=== PATIENT | male | born 1960 | race Caucasian/White ===

== ENCOUNTER 2017-11-10 09:08 | Emergency (ER) | payer OTHER ==
[~2017-11-10] VITALS: Ht 180.3 cm; Wt 104.3 kg
--- NOTE | ~2017-11-10 | EKG ---
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
[2017-11-10] MEDS ORDERED: LIPITOR 20 MG T20 M1 PO (09:32)
[2017-11-10] MEDS ORDERED: ATIVAN1 MG PO (09:34)
[2017-11-10 09:48] LABS: BASOPHILS 0.9 % (0.0-2.0); EOSINOPHILS 2.7 % (0.0-3.0); HEMATOCRIT 45.7 % (42.0-52.0); HEMOGLOBIN 15.8 gm/dL (14.0-18.0); LYMPHOCYTES 38.4 % (24.0-44.0); MCH 32.1 pg (26.0-34.0); MCHC 34.5 g/dL (28.0-37.0); MCV 93.1 fL (80.0-100.0); MONOCYTES 8.1 % (1.0-8.0); PLATELET COUNT 218 thou/uL (150-400); POLYS 49.9 % (36.0-66.0); RBC 4.91 mil/uL (4.50-6.00); RDW 13.2 % (10.5-14.5)
[2017-11-10 09:55] LABS: ANION GAP 11 mmol/L (7-16); BUN 18 mg/dL (7-18); CHLORIDE 104 mmol/L (98-107); CO2 26 mmol/L (21-32); GLUCOSE 97 mg/dL (74-106); POTASSIUM 4.2 mmol/L (3.5-5.1); SODIUM 141 mmol/L (136-145)
[2017-11-10 10:03] LABS: ALBUMIN 4.3 g/dL (3.4-5.0); SGOT 34 U/L (15-37); SGPT 62 U/L (30-65); TOTAL BILIRUBIN 0.4 mg/dL (<0.1-1.0); TROPONIN-I < 0.04 ng/mL (<0.06)
[2017-11-10] MEDS ORDERED: IBUPROFEN 600600 M1 PO (10:38)
[2017-11-10] MEDS ORDERED: LIORESAL 10 MG10 MG PO (10:38)
[2017-11-10] MEDS ORDERED: MEDROLDOSEPACK PO (10:38)
== END 2017-11-10 11:51 | disposition home or self-care (01) ==
LOC: ER 09:08
PROVIDERS: Physician Assistant
DX: R20.0 Anesthesia of skin (principal); M79.602 Pain in left arm